=== PATIENT | male | born 1980 | race Caucasian/White ===

== ENCOUNTER → 2018-08-19 | Outpatient (CLI) | payer OTHER ==
--- NOTE | 2018-08-19 10:41 | REP ---
THORACIC SPINE, THREE VIEWS: HISTORY: Right side numbness. There is no acute fracture of subluxation. There is loss of height of several mid and lower thoracic intervertebral discs. Anterior osteophytes are present in the mid and lower thoracic spine. IMPRESSION: Degenerative change as described above. Electronically Signed by Jas Polanco MD 08/19/2018 10:46 A
--- NOTE | 2018-08-19 10:59 | REP ---
CERVICAL SPINE, SEVEN VIEWS: HISTORY: Right side numbness. The cervical spine is visualized from C1 to the C6-7 level in the lateral radiographs. There is no acute fracture or subluxation. The intervertebral discs are normal in height. The neural foramina are patent. IMPRESSION: There is no acute fracture or subluxation. Electronically Signed by Jas Polanco MD 08/19/2018 11:03 A
== END ==
LOC: M RAD 08:52
PROVIDERS: ATTEND Surgery
DX: R53.1 Weakness (principal)